=== PATIENT | male | born 1960 | race Caucasian/White ===

== ENCOUNTER 2017-11-26 12:13 | Day surgery (SDC) | payer OTHER ==
[2017-11-26] MEDS ORDERED: PROPOFOL 40 ML (14:57)
== END 2017-11-26 16:51 | disposition home or self-care (01) ==
LOC: GIL 12:13
DX: D12.3 Benign neoplasm of transverse colon (principal); K29.70 Gastritis, unspecified, without bleeding; K76.6 Portal hypertension; K31.89 Other diseases of stomach and duodenum; I10 Essential (primary) hypertension
CPT/HCPCS: 43235; 88305

== ENCOUNTER 2018-03-27 09:42 | Day surgery (SDC) | payer OTHER ==
[~2018-03-27 09:42] MED LIST: CEFAZOLIN 1 GM INJ; CEFAZOLIN 2 GM/50 ML (PMX) 50 ML IVPB; LIDOCAINE 2% (SDV) 5 ML INJ
[2018-03-27] MEDS ORDERED: BUPIVACAINE 0.25%/EPI (SDV) 30 ML INJ (13:03)
[2018-03-27] MEDS ORDERED: PROPOFOL 20 ML (13:26)
[2018-03-27] MEDS ORDERED: FENTAnyl 50 MCG/ML VIAL (13:27)
[2018-03-27] MEDS: LIDOCAINE 1% (MPF) 30 ML INJ (13:47)
[2018-03-27] MEDS ORDERED: HYDROCODONE/APAP (5/325) TAB PO ×2 (14:00)
[2018-03-27] MEDS: DIPHENHYDRAMINE 50 MG INJ IV (14:19)
[2018-03-27] MEDS: FENTAnyl 50 MCG/ML VIAL IV ×2 (14:27→14:39)
[2018-03-27] MEDS ORDERED: OXYCODONE/ACETAMINOPHEN (5/325) TAB PO ×2 (14:30)
[2018-03-27] MEDS ORDERED: MIDAZOLAM 1 MG/ML 2 ML INJ IV (14:30)
[2018-03-27] MEDS ORDERED: FENTAnyl 50 MCG/ML VIAL IV ×2 (14:30)
[2018-03-27] MEDS ORDERED: METOCLOPRAMIDE 10 MG INJ IV (14:30)
[2018-03-27] MEDS ORDERED: ONDANSETRON 4 MG INJ IV (14:30)
[2018-03-27] MEDS ORDERED: LABETALOL HCL 20MG INJ IV (14:30)
[2018-03-27] MEDS ORDERED: MEPERIDINE 25 MG INJ IV (14:30)
[2018-03-27] MEDS ORDERED: ALBUTEROL 0.083% (NEB) 2.5 MG/3 ML AMP HHN (14:30)
[2018-03-27] MEDS ORDERED: hydrALAzine 20 MG INJ IV (14:30)
[2018-03-27] MEDS ORDERED: KETOROLAC 30 MG INJ IV (14:30)
[2018-03-27] MEDS ORDERED: EPHEDrine SULFATE 50 MG/5 ML SYG IV (14:30)
[2018-03-27] MEDS: SOD CHLORIDE 0.9% 1,000 ML IV (14:35)
== END 2018-03-27 15:45 | disposition home or self-care (01) ==
LOC: SDS 09:42
DX: D17.0 Benign lipomatous neoplasm of skin and subcutaneous tissue of head, face and neck (principal); I10 Essential (primary) hypertension; K21.9 Gastro-esophageal reflux disease without esophagitis
CPT/HCPCS: 21556; 88304

== ENCOUNTER 2018-07-13 11:33 | Day surgery (SDC) | payer OTHER ==
[2018-07-13] MEDS ORDERED: FENTAnyl 50 MCG/ML VIAL (14:17)
[2018-07-13] MEDS ORDERED: LIDOCAINE 100 MG SYRINGE (14:17)
[2018-07-13] MEDS ORDERED: PROPOFOL 40 ML (14:17)
== END 2018-07-13 16:22 | disposition home or self-care (01) ==
LOC: GIL 11:33
DX: I85.10 Secondary esophageal varices without bleeding (principal); I85.00 Esophageal varices without bleeding; K76.6 Portal hypertension; K31.89 Other diseases of stomach and duodenum; K70.30 Alcoholic cirrhosis of liver without ascites; K29.70 Gastritis, unspecified, without bleeding; K72.90 Hepatic failure, unspecified without coma; F17.200 Nicotine dependence, unspecified, uncomplicated; I10 Essential (primary) hypertension
CPT/HCPCS: 43235

== ENCOUNTER 2019-04-12 11:56 | Day surgery (SDC) | payer OTHER ==
[2019-04-12] MEDS ORDERED: PROPOFOL 40 ML (13:18)
== END 2019-04-12 14:15 | disposition home or self-care (01) ==
LOC: GIL 11:56
DX: I85.00 Esophageal varices without bleeding (principal); K76.6 Portal hypertension; K31.89 Other diseases of stomach and duodenum
CPT/HCPCS: 43235; 88305; 88312